=== PATIENT | male | born 1995 | race African-American/Black ===

== ENCOUNTER 2016-09-21 13:42 | Emergency (ER) | payer OTHER ==
[2016-09-21 13:58] VITALS: BP 112/57; PULSE 63; RESP 20; TEMP 97.9
--- NOTE | 2016-09-21 14:22 | ED ---
General Adult HPI - General Chief complaint: Recheck/Abnormal Lab/Rx Stated complaint: med refill-has hemophilia Time Seen by Provider: 09/21/16 14:03 Source: patient, RN notes reviewed Mode of arrival: ambulatory Limitations: no limitations - History of Present Illness Initial comments: This is a 21-year-old male presents for medication refill. 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 Patient states his car broke down and his medication was filled in [place], and patient states he can't get there today. Patient denies that he hit his head and patient denies any hemarthrosis. Patient states that he takes this medication 3 times weekly. Patient denies any recent fever, chills, shortness breath, chest pain, abdominal pain, nausea/ vomiting/diarrhea, back pain, numbness, tingling, hematuria, headache, or visual changes, or any other complaints. - Related Data Home Medications Medication Instructions Recorded Confirmed No Known Home Medications [No 11/01/13 11/01/13 Known Home Medications] Allergies Allergy/AdvReac Type Severity Reaction Status Date / Time No Known Allergies Allergy Verified 09/21/16 13:58 Review of Systems ROS Statement: Those systems with pertinent positive or pertinent negative responses have been documented in the HPI. ROS Other: All systems not noted in ROS Statement are negative. Past Medical History Past Medical History: No Reported History History of Any Multi-Drug Resistant Organisms: None Reported Past Surgical History: No Surgical Hx Reported Past Psychological History: No Psychological Hx Reported Smoking Status: Never smoker Past Alcohol Use History: None Reported Past Drug Use History: None Reported General Exam - General Exam Comments Initial Comments: General: The patient is awake and alert, in no distress, and does not appear acutely ill. Neck: The neck is supple, there is no tenderness or JVD. Cardiovascular: There is a regular rate and rhythm. No murmur, rub or gallop is appreciated. Respiratory: Lungs are clear to auscultation, respirations are non-labored, breath sounds are equal. No wheezes, stridor, rales, or rhonchi. Musculoskeletal: No hemarthrosis, swelling, erythema, ecchymosis or sign of injury. No tenderness. Full range of motion, strength 5/5 and Sensation intact. Radial pulse 2+ bilaterally. Neurological: A&O x 3. CN II-XII intact, There are no obvious motor or sensory deficits. Coordination appears grossly intact. Speech is normal. Skin: Skin is warm and dry and no rashes or lesions are noted. Psychiatric: Normal mood and affect. Limitations: no limitations Course Vital Signs 09/21/16 13:56 Temperature 97.9 F Pulse Rate 63 Respiratory 20 Rate Blood Pressure 112/57 O2 Sat by Pulse 100 Oximetry Medical Decision Making - Medical Decision Making This is a 21-year-old male who presents with requests for Advate for hemophilia 8. On physical exam patient is neurologically intact. I discussed with patient that we do not have that medication here and that he will need to find a ride to [place] where his prescription was filled. [facility] inpatient pharmacy was contacted. I spoke with the inpatient pharmacy and they do not have the medication the patient needs. Patient is not having any hemarthrosis. Patient did not hit his head. I discussed this case with attending physician Dr. Cortez. 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 Patient was receptive to this plan. I discussed return parameters. Discussed that patient should follow up with PCP in one to 2 days or return to the [facility] for any worsening symptoms or for any further concerns. Patient was receptive to this plan and patient will be discharged home. I discussed this case with attending physician Dr. Cortez who agrees the plan as stated above. 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 Please follow-up with family doctor in the next 2 days of symptoms have not improved. Please return to emergency room if the symptoms increase or worsen or for any other concerns. Referrals: None,Stated [Primary Care Provider] - 1-2 days Time of Disposition: 15:29
== END 2016-09-21 15:33 | disposition home or self-care (01) ==
LOC: EC 13:42
DX: Z76.0 Encounter for issue of repeat prescription (principal)
CPT/HCPCS: 99281